=== PATIENT | female | born 1985 | race Caucasian/White ===

== ENCOUNTER 2017-11-20 08:30 | Outpatient (CLI) | payer MEDICAID | END 2017-11-20 10:30 | disposition home or self-care (01) | LOC: OBT 08:30 → L-D 08:30 → OBT 10:30 | DX: O60.03 Preterm labor without delivery, third trimester (principal); O36.8130 Decreased fetal movements, third trimester, not applicable or unspecified; Z3A.29 29 weeks gestation of pregnancy | CPT/HCPCS: 76815; 76817; 76818 ==